=== PATIENT | female | born 1945 | race Caucasian/White ===

== ENCOUNTER 2023-12-23 16:09 | Inpatient (IN) | payer MEDICARE, OTHER, SELFPAY ==
[2023-12-23 10:52] VITALS: BP 151/83
[2023-12-23 12:05] LABS: % Basophils 0.2 % (0-2); % Eosinophils 0.1 % (0-6); % Immature Granulocytes 0.2 % (0-0.5); % Lymphocytes 27.7 % (20.5-51.1); % Monocytes 3.7 % (1.7-9.3); % Neutrophils 68.1 % (42.2-75.2); Absolute Lymphocytes 3.6 10^3/uL (1.2-3.4); Absolute Monocytes 0.5 10^3/uL (0.1-0.6); Absolute Neutrophils 8.7 10^3/uL (1.4-6.5); Hemoglobin 14.3 g/dL (12.0-16.0); Mean Corpuscular Hgb 29.5 pg (27.0-31.0); Mean Corpuscular Volume 86.6 fL (81.0-99.0); Mean Platelet Volume 10.8 fL (7.4-10.4); Nucleated Red Blood Cells % 0.2 %; Platelet Count 314 10^3/uL (130-400); Red Blood Cell Count 4.85 10^6/uL (4.20-5.40); Red Cell Dist. Width 13.1 % (11.5-14.5); White Blood Cell Count 12.8 10^3/uL (4.8-10.8)
--- NOTE | 2023-12-23 12:11 | ED.GENMED ---
History of Present Illness
General
Chief Complaint: Rectal Bleeding
Source: patient
Exam Limitations: none
Time Seen by Provider: 12/23/23 11:44
Travel History
Have you had any contact with someone who has COVID-19?: No
Do you have any symptoms of coronavirus? Fever > 100 degrees, chills, cough, shortness of breath, sore throat, loss of taste or smell, muscle aches, or headache?: No
History of Present Illness
History of Present Illness:
78-year-old female presents complaining of persistent lower abdominal cramping after colonoscopy she had 3 weeks ago. No polyps were noted on the colonoscopy. Yesterday she developed more discomfort with diarrhea and 1 episode of vomiting. She
had many episodes of diarrhea and towards the end of the loose stool, she noticed red blood on her toilet paper. This morning she noted more blood coming from her rectum. She denies any significant rectal pain. She is not anticoagulated. No
other complaints at this time
Phy Exam
Physical Exam
Physical Exam:
General: Well-appearing female no acute respiratory distress
HEENT: Normocephalic atraumatic
Heart: Regular rate and rhythm no murmurs
Lungs: Clear no wheeze or rales
Abdomen mildly tender to the lower abdomen bilaterally
Rectal exam: This was done with female glue sprayer in the room. There is a small fissure on the left inferior side. No hemorrhoids. No obvious swelling internally but the area is red blood in the rectum that is heme positive
Extremities: No cyanosis
Course
Orders/Labs/Results
Orders:
Orders
12/23/23 11:36
Cardiac Monitoring- Treatment ONCE
IV Insert/Care/Rem.- Treatment PRN
Pulse Ox/spot Check [RESP] Urgent
Quantity: 1
Special Instructions: ON ROOM AIR
12/23/23 11:41
Complete Blood Count/With Diff Urgent
Comprehensive Metabolic Panel Urgent
12/23/23 12:08
CT Abd/pelvis W Iv Cont Urgent
Comment:
Reason For Exam: lower abdominal pain, recent colonoscopy
Lorazepam [Ativan] 0.5 mg IV NOW STA
12/23/23 14:52
0.9% Sodium Chloride 1000 ml [Nss] 1,000 ml IV BOLUS
12/23/23 15:06
STOOL [C difficile Antigen & Toxins] Urgent
MARILOU Source: Feces/Stool
Specimen Description:
Stool Culture Urgent
MARILOU Source: Feces/Stool
Specimen Description:
12/23/23 15:09
Lactic Acid Q4H
Comment: CANCEL 2nd LACTIC ACID IF 1st LACTIC ACID IS LESS THAN 2
12/23/23 15:22
Ciprofloxacin 400 mg/[id number] [Cipro 400 mg] 200 ml IV NOW
MetroNIDAZOLE 500 MG/100 ML [Flagyl 500 mg] 100 ml IV NOW
12/23/23 19:00
Lactic Acid Q4H
Comment: CANCEL 2nd LACTIC ACID IF 1st LACTIC ACID IS LESS THAN 2
Abnormal Lab Results
12/23/23
11:41
WBC 12.8 H 10^3/uL
(4.8-10.8)
MPV 10.8 H fL
(7.4-10.4)
Absolute Neuts (auto) 8.7 H 10^3/uL
(1.4-6.5)
Absolute Lymphs (auto) 3.6 H 10^3/uL
(1.2-3.4)
Glucose 121 H mg/dl
(70-99)
12/23/23 11:41
12/23/23 11:41
Vital Signs
Initial and Last Documented VS:
Initial Vital Signs
Temp Pulse Resp BP Pulse Ox
98.6 F 94 18 151/83 98
12/23/23 10:52 12/23/23 10:52 12/23/23 10:52 12/23/23 10:52 12/23/23 10:52
Last Documented Vital Signs
Temp Pulse Resp BP Pulse Ox
98.6 F 93 18 138/79 98
12/23/23 10:52 12/23/23 15:19 12/23/23 15:19 12/23/23 15:19 12/23/23 15:19
MDM/Problems Addressed
Differential Diagnosis Includes:
Lower abdominal discomfort. Rectal bleeding. Question anal fissure causing rectal bleeding versus diverticular bleed versus infectious colitis. Labs pending. Will check CT.
*Critical Care Note
Total Time (30-74mins, 75-104mins- exclusive of procedures): Not Applicable
Update Note
Update Note:
Labs reviewed. White blood cell count is 12.8. CT demonstrates diffuse bowel wall thickening of the descending and sigmoid colon with surrounding mesenteric inflammatory changes to suggest colitis. This is likely infectious versus inflammatory.
Patient is not anemic. Will plan admitting to hospital. Discussed with gastroenterology. IV fluids and lactic ordered. Will start cipro/flagyl per GI.
ED Attending Note
-
Portions of this chart may have been created with voice recognition software.� Occasional wrong word or��sound alike� substitutions may have occurred due to the inherent limitations of voice recognition software.
Discharge Plan
Departure
Patient Disposition: Admit
Date of Disposition: 12/23/23
Time of Disposition: 15:30
Admit to: Telemetry
Presentation/result/management discussed w/ accepting MD/DO: Hospitalist
Discharge Problem:
Colitis
Prescriptions:
No Action
meloxicam [Mobic] 15 mg Tablet
15 mg PO DAILYPRN PRN (Reason: mild pain)
cholecalciferol (vitamin D3) [Vitamin D3] 25 mcg (1,000 unit) Tablet
25 mcg PO DAILY
biotin 5 mg Tablet
5 mg PO DAILY
Prolia 60 mg/mL Syringe
60 mg SC [id number]
red yeast rice 600 mg Tablet
600 mg PO DAILY
Referrals:
Jovani Mckeon MD [Family Provider] -
Interventions
Interventions:
*Risk Screen - Suicide Last Done: 12/23/23 10:55
*General Assessment Last Done: 12/23/23 10:55
*Neglect/Abuse Screening Last Done: 12/23/23 10:55
ED- Fall Risk Assessment Last Done: 12/23/23 11:43
XN-Duuikw-Dgocnqjsiy Assessment Last Done: 12/23/23 11:43
ED- Cardiac Assessment Last Done: 12/23/23 11:43
ED- Pulmonary Assessment Last Done: 12/23/23 11:43
Discharge Date and Time
Print Language: ROMANIAN
[2023-12-23 12:17] LABS: ALT (SGPT) 23 U/L (0-35); AST (SGOT) 28 U/L (14-36); Albumin 4.7 g/dl (3.5-5.0); Alkaline Phosphatase 60 U/L (38-126); Blood Urea Nitrogen 16 mg/dl (7-17); Calcium 9.8 mg/dl (8.4-10.2); Carbon Dioxide 26 mmol/L (22-30); Chloride 102 mmol/L (98-107); Glucose 121 mg/dl (70-99); Potassium 4.1 mmol/L (3.5-5.1); Sodium 137 mmol/L (135-145); Total Bilirubin 0.7 mg/dl (0.2-1.3); Total Protein 7.4 g/dl (6.3-8.2); eGFR > 60.00
[2023-12-23] MEDS: ATIVAN 0.5 MG IV (12:18)
[2023-12-23 13:14] VITALS: BP 147/72
[2023-12-23] MEDS: NSS 1000 IV ×2 (15:10→17:48)
[2023-12-23 15:19] VITALS: BP 138/79
[2023-12-23] MEDS: FLAGYL 500 MG 100 IV (15:37)
--- NOTE | 2023-12-23 15:49 | HPS.HSE ---
Family Physician
-
Family Physician: Jovani Mckeon
Chief Complaint
-
Diarrhea for 1 day
History of Present Illness
78 years old female came in from home. Patient went out for [employer] yesterday. She came back home and was feeling fine until 6 to 8 hours later when she started to have abdominal discomfort and one time bowel movement, was diarrhea and large
amount. She continued to have the urge to move her bowels but no more stools. She had nausea and one-time vomiting. She noticed red blood on her toilet paper. She had fresh blood coming from her rectum today and decided to come to the hospital.
She had colonoscopy on December [address] Brownlee at [facility]. No polyps removed and reportedly was normal. Since colonoscopy she was experiencing in the frequent lower abdominal cramping.
In the ER, she did not have further bowel movements. She had mild leukocytosis at 12.8. Normal lactic acid.
Medical History
Past Medical History
Past Medical History: Reports Other (History of palpitations, history of colonic polyp)
Past Surgical History: Reports Other (No recent major surgery)
Social History
Tobacco: Non-smoker
Drug: None
Personal:
Living: With Family
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
Family History
Family History: Other (Father of emphysema and had colon cancer diagnosis. Mother of old age. )
Allergies / Home Medications
Allergies reflects when Allergies were last updated in [employer].
Home Medications with original date entered in [employer]
Allergy/Medication List:
Allergies
Allergy/AdvReac Type Severity Reaction Status Date / Time
No Known Allergies Allergy Unverified 12/23/23 10:51
Home Medications
biotin 5 mg tablet 5 mg PO DAILY Supplement 12/23/23
cholecalciferol (vitamin D3) 25 mcg (1,000 unit) tablet (Vitamin D3) 25 mcg PO DAILY Supplement 12/23/23
denosumab 60 mg/mL subcutaneous syringe (Prolia) 60 mg SC [id number] osteoporosis 12/23/23
meloxicam 15 mg tablet 15 mg PO DAILYPRN PRN mild pain 12/23/23
red yeast rice 600 mg tablet 600 mg PO DAILY Supplement 12/23/23
Review of Systems
-
History Source: Patient
A 12 point ROS was completed and negative except as noted: Yes
Constitutional: Denies Fever or Chills
EENT: Denies Sore Throat
Respiratory: Denies Cough
Cardiac: Denies Chest Pain
Abdomen/GI: Reports Abdominal Pain, Nausea and Bloody Stools
: Denies Dysuria or Frequency
Musculoskeletal: Denies Joint Swelling, Muscle Stiffness or Edema
Skin: Denies Itching or Rash
Neurological: Denies Headache or Numbness
Endocrine: Denies Temp Intolerance
Hematologic/Lymphatic: Denies Bruising
Psych: Denies Panic Disorder
Physical Exam
Vital Signs
Vital Signs
Temp Pulse Resp BP Pulse Ox
98.6 F 93 18 138/79 98
12/23/23 10:52 12/23/23 15:19 12/23/23 15:19 12/23/23 15:19 12/23/23 15:19
Physical Exam
General: Well Nourished, No Apparent Distress and Comfortable
HEENT: Anicteric and Moist mucous membranes
Respiratory: Clear
Cardiac: S1/S2, Regular Rhythm and Murmur
GI: Soft, Non Tender, Non Distended and Normal Bowel Sounds
Genito-urinary: No costovertebral tender
Musculoskeletal: No Clubbing, No Cyanosis and No Edema
Skin: Warm; No Rash or Jaundice
Neuro: AO x 3 and Nonfocal/grossly intact; No Slurred Speech, Facial Droop or Tremors
Psych: Calm and Intact Judgment/Insight
Laboratory Results
-
12/23/23 11:41
12/23/23 11:41
Laboratory Results
Lactic Acid Cancelled 12/23/23 19:00
Total Bilirubin 0.7 mg/dl (0.2-1.3) 12/23/23 11:41
AST 28 U/L (14-36) 12/23/23 11:41
ALT 23 U/L (0-35) 12/23/23 11:41
Alkaline Phosphatase 60 U/L (38-126) 12/23/23 11:41
Impression/Plan
-
IMPRESSION:
78 years old female presented with sudden onset of diarrhea followed by mild blood per rectum, associated with nausea but no significant vomit
# Acute descending and sigmoid colitis
Differential diagnosis include infectious/inflammatory. Due to sudden onset + recent normal colonoscopy, most likely infectious. Recent colonoscopy reported per patient was normal which likely rules out inflammatory bowel disease
Admit the patient to the hospital
Bowel rest with clear liquid for now. IV fluid. Empiric IV antibiotic. Stool studies. Blood culture X2.
No fever. No abdominal tenderness on exam.
Try to get recent colonoscopy report from [facility]. No history of polypectomy.
Appreciate GI input
#Leukocytosis. No fever. Will do blood culture
# DVT prophylaxis with GI prophylaxis
# History of rectal bleeding. Monitor hemoglobin. No active rectal bleeding at present time.
# History of palpitations. 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 History of mitral valve prolapse.
No history of chest pain or syncopal episode. No shortness of breath.
Total time spent to see the patient, examine the patient on the floor, review data and lab results, discuss treatment plan with patient, GI doctor, ER doctor and nursing staff around 75 minutes
[2023-12-23] MEDS: CIPRO 400 MG 200 IV (17:17)
[2023-12-23 17:34] VITALS: BMI 22.7
--- NOTE | 2023-12-23 17:59 | CON.GI ---
Consultation
-
Date/Time Consultation Requested: 12/23/2023
Date/Time Consultation Performed: 12/23/2023
Requesting Provider: Hospitalist
Performing Provider: Deepa BROWN
Reason for Consultation: Bloody diarrhea
Medical History
Chief Complaint / HPI
Chief Complaint: Diarrhea/blood in stool
History of Present Illness:
78-year-old female admitted with severe diarrhea for 1 day. Patient went outside for [employer] and ate an omelette. History evening she started having crampy lower abdominal pain and started having severe diarrhea. Over 10 loose bowel
movements. She started noticing blood after several watery stool. She also noticed blood mixed with stool today as well. Denies any fever or chills. No sick contacts. Admits to some nausea with no vomiting.
Last colonoscopy November [address] Brownlee at [facility]-she was reassured at that time. Prior history of colon polyps
In ED vital leukocytosis. Normal lactic acid
Past Medical History
Past Medical History: Other (Palpitation)
Past Surgical History: None
Social History
Tobacco: Non-Smoker
Alcohol: None
Allergies / Home Medications
Allergy/AdvReac Type Severity Reaction Status Date / Time
No Known Allergies Allergy Unverified 12/23/23 10:51
�Medication �Instructions �Recorded
biotin 5 mg tablet 5 mg PO DAILY Supplement 12/23/23
cholecalciferol (vitamin D3) 25 25 mcg PO DAILY Supplement 12/23/23
mcg (1,000 unit) tablet (Vitamin
D3)
denosumab 60 mg/mL subcutaneous 60 mg SC [id number] osteoporosis 12/23/23
syringe (Prolia)
meloxicam 15 mg tablet 15 mg PO DAILYPRN PRN mild pain 12/23/23
red yeast rice 600 mg tablet 600 mg PO DAILY Supplement 12/23/23
Review of Systems
-
All other systems: A 12 pt ROS was Negative except as stated above in HPI
Vital Signs
Temp Pulse Resp BP Pulse Ox
98.6 F 93 18 138/79 98
12/23/23 10:52 12/23/23 15:19 12/23/23 15:19 12/23/23 15:19 12/23/23 15:19
Physical Exam
Exam
General: Well Developed, No Apparent Distress and Comfortable
Respiratory: Clear
Cardiac: S1/S2
GI: Soft, Non Tender, Non Distended and Normal Bowel Sounds
Results
WBC 12.8 10^3/uL (4.8-10.8) H 12/23/23 11:41
Hgb 14.3 g/dL (12.0-16.0) 12/23/23 11:41
Hct 42.0 % (37.0-47.0) 12/23/23 11:41
MCV 86.6 fL (81.0-99.0) 12/23/23 11:41
Plt Count 314 10^3/uL (130-400) 12/23/23 11:41
Absolute Neuts (auto) 8.7 10^3/uL (1.4-6.5) H 12/23/23 11:41
Sodium 137 mmol/L (135-145) 12/23/23 11:41
Potassium 4.1 mmol/L (3.5-5.1) 12/23/23 11:41
Chloride 102 mmol/L (98-107) 12/23/23 11:41
Carbon Dioxide 26 mmol/L (22-30) 12/23/23 11:41
BUN 16 mg/dl (7-17) 12/23/23 11:41
Creatinine 0.6 mg/dL (0.6-1.0) 12/23/23 11:41
Calcium 9.8 mg/dl (8.4-10.2) 12/23/23 11:41
Total Bilirubin 0.7 mg/dl (0.2-1.3) 05/13/24 11:41
AST 28 U/L (14-36) 12/23/23 11:41
ALT 23 U/L (0-35) 12/23/23 11:41
Alkaline Phosphatase 60 U/L (38-126) 12/23/23 11:41
Diagnostic Image Results:
CT abdomen/pelvis with IV contrast
IMPRESSION:
1. Pronounced bowel wall thickening and mesenteric inflammatory change adjacent to the descending and sigmoid colon, consistent with long segment colitis. Colitis is likely infectious or inflammatory.
2. 3.6 cm ovoid fluid collection within the pelvis adjacent to the rectum, which may represent loculated peritoneal fluid, ovarian cystic lesion, or other benign cystic etiology. Consider pelvic ultrasound for further characterization.
Prior GI Procedures:
EGD:
Colonoscopy: 11/2023 at [facility]-reassured. No records available
Assessment / Plan
-
78-year-old female admitted with severe diarrhea for 1 day with bleeding per rectum. Last colonoscopy 11/2023-unremarkable as per patient
-Diarrhea/bloody stool/CT imaging showing wall thickening/eccentric inflammatory changes adjacent to the descending and sigmoid colon. Etiology-infectious versus ischemic. Patient had a recent colonoscopy which was unremarkable so unlikely to be
inflammatory. Lactic acid was normal on admission. Mild leukocytosis. Hemoglobin 14.3
plan
Check stool for infection
Monitor stool output
Monitor H&H
IV hydration
Empiric antibiotic was started by medical team
Liquid diet
Pelvic ultrasound as per medical team to evaluate pelvic fluid collection
Total Time Spent with Patient (in minutes): 55
-
-
Thank you for consultation and allowing me to participate in the patient's care. Please call the conference director GI physician during the after hours with any questions or concerns.
[2023-12-23] MEDS: HEPARIN 5000 UNITS SC (22:14)
[2023-12-23] MEDS: ZOSYN 50 IV (23:13)
[2023-12-23 23:20] VITALS: BP 108/53
[2023-12-24] MEDS: NSS 1000 IV (04:05)
[2023-12-24] MEDS: ZOSYN 50 IV ×2 (05:58→11:19)
[2023-12-24 06:33] LABS: Hematocrit 34.8 % (37.0-47.0); Hemoglobin 11.6 g/dL (12.0-16.0); Mean Corp Hgb Conc. 33.3 g/dL (33.0-37.0); Mean Corpuscular Hgb 29.7 pg (27.0-31.0); Mean Corpuscular Volume 89.2 fL (81.0-99.0); Mean Platelet Volume 10.9 fL (7.4-10.4); Platelet Count 211 10^3/uL (130-400); Red Cell Dist. Width 13.3 % (11.5-14.5); White Blood Cell Count 7.9 10^3/uL (4.8-10.8)
[2023-12-24 06:44] LABS: ALT (SGPT) 15 U/L (0-35); AST (SGOT) 24 U/L (14-36); Albumin 3.2 g/dl (3.5-5.0); Alkaline Phosphatase 49 U/L (38-126); Blood Urea Nitrogen 9 mg/dl (7-17); Calcium 8.2 mg/dl (8.4-10.2); Carbon Dioxide 23 mmol/L (22-30); Chloride 109 mmol/L (98-107); Estimated Creatinine Clearance 68 ml/min; Glucose 93 mg/dl (70-99); Potassium 3.5 mmol/L (3.5-5.1); Sodium 139 mmol/L (135-145); Total Bilirubin 0.7 mg/dl (0.2-1.3); Total Protein 5.3 g/dl (6.3-8.2); eGFR > 60.00
[2023-12-24 07:00] VITALS: BP 108/47
[2023-12-24] MEDS: NSS (PRESERVATIVE FREE) 10 ML IV (07:58)
[2023-12-24] MEDS: HEPARIN 5000 UNITS SC (07:58)
[2023-12-24] MEDS: PROTONIX IV 40 MG IV (07:59)
--- NOTE | 2023-12-24 09:54 | W.DCSUMMARY ---
Discharge Summary
Discharge Data
Date of Admission: 12/23/23
Date of Discharge: 12/24/23
-
Pending Results: No
Hospital Course
78 years old female who presented with sudden onset of diarrhea and bleeding per rectum. She had abdominal discomfort and nausea with one-time vomiting. She presented to the emergency room. She did not have fever. She had mild leukocytosis.
Hemoglobin was 14.3. Lactic acid was normal. Scan of the abdomen and pelvis showed wall thickening/eccentric inflammatory changes adjacent to the descending and sigmoid colon. Differential diagnosis was possible infectious. Patient had recent
colonoscopy that was normal. Patient was started on empiric antibiotic. She had intravenous fluid and bowel rest. She did not have further diarrhea or rectal bleeding. She could not provide stool specimen. She did not have fever. No abdominal
pain. Diet was advanced with good clinical improvement. No more diarrhea. She remained hemodynamically stable. She was discharged in a stable condition to follow-up with her primary care doctor. She was followed by gastroenterology service.
Physical Exam
General: Well Nourished, No Apparent Distress and Comfortable
HEENT: Anicteric and Moist mucous membranes
Respiratory: Clear
Cardiac: S1/S2, Regular Rhythm and Murmur
GI: Soft, Non Tender, Non Distended and Normal Bowel Sounds
Genito-urinary: No costovertebral tender
Musculoskeletal: No Clubbing, No Cyanosis and No Edema
Skin: Warm; No Rash or Jaundice
Neuro: AO x 3 and Nonfocal/grossly intact; No Slurred Speech, Facial Droop or Tremors
Psych: Calm and Intact Judgment/Insight
Total discharge time spent to see the patient, examine the patient on the floor, review data and lab results, discuss discharge plan with patient, GI Dr. And nursing staff around 65 minutes
Discharge Plan
-
Patient Disposition: Home (Routine Discharge)
Discharge Diagnosis/Procedures: Acute colitis likely infectious, seems to resolve.
Diet: Low Residue
Additional Diets: Low residue diet for 3 days and advance as tolerated
Activity: No restrictions
Driving Restrictions: As prior to admission
Referrals:
Jovani Mckeon MD [Family Provider] - in one to two weeks
Ying Delgado DO [Active] - 01/22/24 11:30 am
Prescriptions:
Continued
meloxicam 15 mg Tablet
15 mg PO DAILYPRN PRN (Reason: mild pain)
cholecalciferol (vitamin D3) [Vitamin D3] 25 mcg (1,000 unit) Tablet
25 mcg PO DAILY
biotin 5 mg Tablet
5 mg PO DAILY
Prolia 60 mg/mL Syringe
60 mg SC [id number]
red yeast rice 600 mg Tablet
600 mg PO DAILY
Discharge Orders:
Discharge Patient (As Directed); Ordered 12/24/23
Ordered By: Idalia Travis
Discharge Date and Time
Print Language: ITALIAN
--- NOTE | 2023-12-24 11:40 | CM ---
Met with pt at bedside
Pt lives with her in a 2 story home
Independent, does cooking, cleaning, shopping
DME - none
SNF/HH - denies past history
Has ride at d/c
PCP - Dr Rommel Mckeon
Pharm - [facility]
Plan - anticipate home no needs
[2023-12-24] MEDS: NSS IV (12:23)
[2023-12-24 12:28] VITALS: BP 142/68
--- NOTE | 2023-12-24 12:39 | W.PN.GI.CBS2 ---
Today's Communication / Plan
-
Symptoms resolved-- stable for d/c today. Office appointment scheduled with GI on 01/21 @ 11:30 AM.
Assessment / Plan
-
78-year-old female admitted with severe diarrhea for 1 day with bleeding per rectum. Last colonoscopy 11/2023 (per patient) with CT demonstrating wall thickening/eccentric inflammatory changes adjacent to the descending and sigmoid colon.
#Diarrhea, BRBPR-- DDx infectious vs. ischemic colitis, less likely inflammatory given recent normal colonoscopy
-Distribution of inflammation in watershed area, more consistent with ischemic colitis
-Mild leukocytosis on admission, now normalized
-Lactate WNL
-Hgb 14.3 --> 11.6, s/p IVF
-Patient tolerating a diet, okay for discharge from a GI perspective
-Stool studies ordered, however, no BMs since arrival to collect
-obtain records from [facility], patient would like to follow-up in our office after discharge
Subjective
Subjective
Date of Service: December 24, 2023
Deidra seen in follow-up today, reports resolution of symptoms. Denies any bloody diarrhea overnight. She feels clinically well to be discharged today with outpatient follow-up. Hemoglobin 14.3 --> 11.6. Leukocytosis normalized. BUN 16 --> 9.
Objective
Data Reviewed
Laboratory Data:
Laboratory Results
12/24/23 06:09
12/24/23 06:09
Laboratory Results
Total Bilirubin 0.7 mg/dl (0.2-1.3) 12/24/23 06:09
AST 24 U/L (14-36) 12/24/23 06:09
ALT 15 U/L (0-35) 12/24/23 06:09
Alkaline Phosphatase 49 U/L (38-126) 12/24/23 06:09
Vital Signs and I&O:
Vital Signs
Temp Pulse Resp BP Pulse Ox
97.8 F 80 18 142/68 97
12/24/23 12:28 12/24/23 12:28 12/24/23 12:28 12/24/23 12:28 12/24/23 12:28
I&O
12/23/23 12/24/23 12/25/23
06:59 06:59 06:59
Intake Total 1954
Balance 1954
Physical Exam
Physical Exam
GENERAL: In no acute distress, appears comfortable
HEENT: no scleral icterus, mucous membranes moist, OP clear
RESP: Nonlabored respirations, clear to auscultation, b/l
CV: RRR, S1/S2
ABDOMEN: +BS; soft, non-tender and non-distended; no rebound or guarding
EXT: No LE edema, b/l
SKIN: Dry, warm
NEURO: AAOx3
== END 2023-12-24 14:00 | disposition home or self-care (01) | DRG 392 ==
LOC: 3 WEST ACU 16:09
PROVIDERS: Physician Assistant; ADMITTING PHYSICIAN Internal Medicine; CONSULT PHYSICIAN Internal Medicine Gastroenterology; EMERGENCY PHYSICIAN Emergency Medicine; FAMILY PHYSICIAN Family Medicine
DX: A09 Infectious gastroenteritis and colitis, unspecified (principal); I34.1 Nonrheumatic mitral (valve) prolapse
CPT/HCPCS: 74177; 80053; 83605; 85025; 85027; 87040; 96365; 96375; 99285; Q9967